=== PATIENT | female | born 1940 | race Caucasian/White ===

== ENCOUNTER → 2017-03-27 | Outpatient (REF) | payer OTHER ==
[2017-03-27 18:55] LABS: BACTERIA, URINE LARGE AMOUNT; CALCIUM OXALATE CRYSTALS,URINE SMALL AMOUNT /hpf; HYALINE CAST, URINE NONE SEEN /lpf (0-1); SQUAMOUS EPITHELIAL CELL URINE MOD AMOUNT /hpf (SMALL AMT); TRANSITIONAL EPI CELLS, URINE SMALL AMOUNT /hpf
[2017-03-27 18:56] LABS: MICROSCOPIC EXAM PERFORMED
== END ==
LOC: M LAB REF 16:35
PROVIDERS: ATTEND Nurse Practitioner Adult Health
DX: N39.0 Urinary tract infection, site not specified (principal)

== ENCOUNTER → 2018-04-01 | Outpatient (REF) | payer OTHER ==
[2018-04-01 13:14] LABS: PHOSPHORUS LEVEL 3.6 MG/DL (2.5-4.9); PTH INTACT 34.1 PG/ML (18.5-88.0)
== END ==
LOC: M LAB REF 12:34
PROVIDERS: ATTEND Nurse Practitioner Adult Health
DX: I13.10 Hypertensive heart and chronic kidney disease without heart failure, with stage 1 through stage 4 chronic kidney disease, or unspecified chronic kidney disease (principal)

== ENCOUNTER → 2020-01-30 | Outpatient (REF) | payer MEDICARE ==
[2020-01-31 13:07] LABS: PHOSPHORUS LEVEL 2.4 MG/DL (2.5-4.9)
[2020-01-31 14:06] LABS: PTH INTACT 12.6 PG/ML (18.5-88.0)
== END ==
LOC: M LAB REF 11:58
PROVIDERS: ATTEND Nurse Practitioner Adult Health
DX: N18.31 Chronic kidney disease, stage 3a (principal); E83.52 Hypercalcemia

== ENCOUNTER → 2020-08-29 | Outpatient (CLI) | payer MEDICARE ==
--- NOTE | 2020-08-29 09:27 | REP ---
INDICATION: HTN, CKD COMPARISON: None TECHNIQUE: Real time hogan scale ultrasound examination using curved array transducer followed by color Doppler evaluation of the renal vasculature. FINDINGS: The bilateral kidneys demonstrate multiple bilateral cortical and peripelvic cysts measuring up to 1.1 cm lower pole right kidney and 1.7 cm midpole left kidney. No hydronephrosis, nephrolithiasis, or renal mass lesion identified by ultrasound. Right kidney measures 10.3 x 5.1 x 3.7 cm. Left kidney measures 10.1 x 4.3 x 4.8 cm. Bladder is under distended. There is a 4.8 x 4.6 x 4.3 cm hypodense lesion causing mass effect on the bladder which may represent fibroid and requires correlation. Color Doppler evaluation Peak aortic velocity: 79 centimeters/second RIGHT KIDNEY Renal arterial velocity: 109 centimeters/second Renal-aortic ratio: 1.4 Intrarenal resistive indices: 0.72-0.77 Intrarenal acceleration times: 0.039-0.044 LEFT KIDNEY Renal arterial velocity: 111 centimeters/second Renal-aortic ratio: 1.4 Intrarenal resistive indices: 0.71-0.74 Intrarenal acceleration times: 0.042-0.053 IMPRESSION: 1. Bilateral renal cysts. 2. Doppler interegation without sonographic evidence for renal arterial stenosis. 3. 4.8 cm hypoechoic mass within the pelvis causing deviation of the bladder possibly representing fibroid. Correlation with pelvic ultrasound may be warranted. <Electronically signed by Pancho Brown > 08/29/20 [id number]
== END ==
LOC: M RAD 08:03
PROVIDERS: ATTEND Nurse Practitioner Adult Health
DX: N18.31 Chronic kidney disease, stage 3a (principal); I13.10 Hypertensive heart and chronic kidney disease without heart failure, with stage 1 through stage 4 chronic kidney disease, or unspecified chronic kidney disease; N28.1 Cyst of kidney, acquired; R09.89 Other specified symptoms and signs involving the circulatory and respiratory systems

== ENCOUNTER → 2020-09-11 | Outpatient (CLI) | payer MEDICARE ==
--- NOTE | 2020-09-11 15:41 | REP ---
INDICATION: PELVIC MAS SEEN ON RENAL U/S 08/29/20. COMPARISON: Renal ultrasound 08/29/2020, pelvic ultrasound 06/07/2014. TECHNIQUE: Transabdominal and transvaginal scanning performed. FINDINGS: Uterine dimensions are 11.7 x 4.8 x 6.6 cm. Endometrial echo is 6 mm in AP dimension and centrally placed. Heterogeneous mass is seen in the right uterus compatible with a fibroid 4.7 x 4.8 x 4.5 cm. The bladder measures 11.5 x 6.6 x 7.2cm. The ovaries could not be visualized. There is no adnexal mass identified. No free fluid is seen in the cul-de-sac. IMPRESSION: Right uterine fibroid, maximum diameter 4.8 cm. Compared to the prior pelvic ultrasound this has increased in size, prior maximum diameter was 3.6 cm. <Electronically signed by Toño Grider > 09/11/20 [id number]
== END ==
LOC: M RAD 14:52
PROVIDERS: ATTEND Nurse Practitioner Adult Health
DX: R19.00 Intra-abdominal and pelvic swelling, mass and lump, unspecified site (principal)

== ENCOUNTER → 2020-11-08 | Outpatient (REF) | payer MEDICARE | LOC: M LAB REF 11:24 | PROVIDERS: ATTEND Nurse Practitioner Adult Health | DX: N18.31 Chronic kidney disease, stage 3a (principal) ==

== ENCOUNTER → 2023-10-28 | Outpatient (CLI) | payer MEDICARE ==
[~2023-10-28] MED LIST: PROHANCE 279.3MG/ML 15ML VIAL As Ordered ONE
== END ==
LOC: M RAD 12:35
PROVIDERS: ATTEND Physician Assistant
DX: H90.3 Sensorineural hearing loss, bilateral (principal)
CPT/HCPCS: 70553; A9576